=== PATIENT | male | born 1950 | race Caucasian/White ===

== ENCOUNTER → 2020-05-02 | Outpatient (CLI) | payer OTHER ==
--- NOTE | 2020-05-02 11:34 | XR ---
EXAMINATION TYPE: XR knee limited RT DATE OF EXAM: 05/02/2020 COMPARISON: NONE HISTORY: Possible foreign body TECHNIQUE: Three views are submitted. FINDINGS: There is severe arthropathy of the knee joint with hypertrophic spurring. Moderate-sized suprapatella r bursal fluid collection noted. There is a positive metallic foreign body in the posterior soft tiss ues of the knee. IMPRESSION: 1. Exam is POSITIVE for metallic foreign body posterior lateral to the knee joint within the subcutan eous soft tissues. 2. Severe arthropathy with suprapatellar bursal fluid collection.
--- NOTE | 2020-05-02 11:36 | XR ---
EXAMINATION TYPE: XR skull limited DATE OF EXAM: 05/02/2020 COMPARISON: None HISTORY: Shrapnel, 48 years, pre-MRI TECHNIQUE: Two-view skull FINDINGS: There is a metallic fragment at the level of the right angle of the jaw. This may be within the bone or within soft tissue. This would contraindicate MRI. Consider additional workup with CT of the mandible to further evaluate the location of this foreign body. Dental work is present. No additional radiopaque foreign bodies are evident. IMPRESSION: 1. Radiopaque foreign body at the right angle of the jaw of uncertain detail location. CT could be p erformed for closer evaluation. Based on the x-ray, this would contraindicate MRI.
--- NOTE | 2020-05-02 11:41 | XR ---
EXAMINATION TYPE: XR tibia fibula RT DATE OF EXAM: 05/02/2020 COMPARISON: None HISTORY: Metallic foreign body, shrapnel fragment 48 years TECHNIQUE: 2 view right tibia and fibula FINDINGS: The distal right tibia and fibula are examined in AP and lateral views. No metallic foreign bodies in the [id number]. The osseous structures are intact. Ankle appears normal as visualized. Knee is out of the [id number]. IMPRESSION: 1. Normal distal tibia and fibula. No metallic foreign body to contraindicate MRI within the field-o f-view.
== END | disposition home or self-care (01) ==
LOC: RADMRIMAIN 10:17
DX: M12.861 Other specific arthropathies, not elsewhere classified, right knee (principal); T18.0XXA Foreign body in mouth, initial encounter; S80.251A Superficial foreign body, right knee, initial encounter; M25.861 Other specified joint disorders, right knee
CPT/HCPCS: 70250

== ENCOUNTER → 2020-05-22 | Outpatient (CLI) | payer OTHER ==
--- NOTE | 2020-05-22 15:26 | CT ---
EXAMINATION TYPE: CT facial bones wo con DATE OF EXAM: 05/22/2020 COMPARISON: Skull series 05/02/2020 HISTORY: Foreign body right cheek for 20+ years. No complaints at time of scan. CT DLP: 630.3 mGycm Automated exposure control for dose reduction was used. TECHNIQUE: CT scan of the sinuses is performed without contrast, axial images are obtained, coronal r eformatted images are also reviewed. FINDINGS: Metallic density present within the subcutaneous fat over the right buccal region measures approximately 6 mm x 6.2 mm, axial image #24. Incidental note made of degenerative disc change, multi level foraminal encroachment and the upper cervical spine. The paranasal sinuses including the front al, ethmoid, sphenoid, and maxillary sinuses bilaterally are well-aerated without abnormal opacificat ion. The ostiomeatal complex is patent bilaterally on the coronal images. Visualized portion of mastoid air cells show no abnormal opacification. The globes are intact bilate rally. IMPRESSION: The sinuses are clear and the ostiomeatal complex is patent bilaterally. Subcutaneous fat shows metallic foreign body on the right.
== END ==
LOC: RADCTMAIN 13:31
DX: Z18.10 Retained metal fragments, unspecified (principal)
CPT/HCPCS: 70486

== ENCOUNTER → 2020-08-28 | Outpatient (CLI) | payer OTHER ==
--- NOTE | 2020-08-28 12:17 | CT ---
EXAMINATION TYPE: CT abdomen pelvis w con DATE OF EXAM: 08/28/2020 COMPARISON: None HISTORY: Malignant neoplasm of Prostate CT DLP: 384.9 mGycm Automated exposure control for dose reduction was used. TECHNIQUE: Helical acquisition of images from the lung bases through the pelvis have been completed. CONTRAST: Performed with Oral Contrast and with IV Contrast, patient injected with 100 mL of Isovue 300. FINDINGS: LUNG BASES: No significant abnormality is appreciated. AORTA: No significant abnormality is appreciated. LIVER/GB: Scattered calcifications are present within the liver, liver shows no mass, gallbladder is normal PANCREAS: No significant abnormality is seen. SPLEEN: Scattered calcifications also present within the spleen, there may be old granulomatous disea se ADRENALS: No significant abnormality is seen. KIDNEYS: No significant abnormality is seen. REPRODUCTIVE ORGANS: Prostate is enlarged and shows an inferior impression on the urinary bladder. BOWEL: Thickening along the sigmoid colon may be indicative of muscular hypertrophy or lack of diste ntion rather than mucosal lesion, there is diverticular change. FREE AIR: No Free Air visible. ASCITES: None visible. PELVIC ADENOPATHY: None visualized. RETROPERITONEAL ADENOPATHY: No Retroperitoneal Adenopathy visible. URINARY BLADDER: Urine distended, bladder wall thickening could be indicative of chronic bladder out let obstruction OSSEOUS STRUCTURES: There is a spinal curvature. Multilevel spondylosis is present, there is loss of disc height no lumbar spine at the intervertebral levels with multilevel vacuum disc phenomenon. Scl erosis involving multiple vertebral bodies felt likely to be secondary to degenerative changes rather than metastatic disease, there is multilevel facet arthropathy. IMPRESSION: PROSTATE IS ENLARGED, DEGENERATIVE DISC DISEASE AND SPINAL CURVATURE, CONSIDER BONE SCAN. DIVERTICULO SIS. OLD GRANULOMATOUS DISEASE..
== END | disposition home or self-care (01) ==
LOC: RADCTMAIN 09:03
DX: C61 Malignant neoplasm of prostate (principal); N40.0 Benign prostatic hyperplasia without lower urinary tract symptoms; K57.90 Diverticulosis of intestine, part unspecified, without perforation or abscess without bleeding
CPT/HCPCS: 82565; 84520; 74177; 36415; Q9967 ×2

== ENCOUNTER 2020-11-02 07:56 | Emergency (ER) | payer OTHER ==
[2020-11-02 08:03] VITALS: BP 125/74; PULSE 79; RESP 18; TEMP 98.3
--- NOTE | 2020-11-02 08:18 | ED ---
Male Urogenital HPI - General Chief complaint: Urogenital Stated complaint: Catheter Issues Time Seen by Provider: 11/02/20 08:03 Source: patient, RN notes reviewed Mode of arrival: wheelchair Limitations: no limitations - History of Present Illness Initial comments: 70-year-old male presents emergency Department chief complaint of Geller catheter issues. Patient states he had a prostatectomy at the [facility] on Thursday. Patient states her discharged his Geller catheter was clogged with blood clots and he had to be irrigated. He states that he woke up this morning with insertion pressure and states it was not draining. Patient states she is concerned it may be clogged again he otherwise has no other complaints denies any fevers chills nausea vomiting diarrhea constipation. - Related Data Allergies Allergy/AdvReac Type Severity Reaction Status Date / Time No Known Allergies Allergy Verified 11/02/20 08:03 Review of Systems ROS Statement: Those systems with pertinent positive or pertinent negative responses have been documented in the HPI. ROS Other: All systems not noted in ROS Statement are negative. Past Medical History Past Medical History: Cancer, Hypertension Additional Past Medical History / Comment(s): prostate cancer History of Any Multi-Drug Resistant Organisms: None Reported Additional Past Surgical History / Comment(s): prostatectomy, right knee meniscus Past Psychological History: No Psychological Hx Reported Smoking Status: Former smoker Past Alcohol Use History: Occasional Past Drug Use History: None Reported General Exam Limitations: no limitations General appearance: alert, in no apparent distress Head exam: Present: atraumatic, normocephalic, normal inspection Respiratory exam: Present: normal lung sounds bilaterally. Absent: respiratory distress, wheezes, rales, rhonchi, stridor Cardiovascular Exam: Present: regular rate, normal rhythm, normal heart sounds. Absent: systolic murmur, diastolic murmur, rubs, gallop, clicks GI/Abdominal exam: Present: soft, distended, tenderness, normal bowel sounds, other (Multiple incisions and abdomen closed no erythematous changes no wound dehiscence). Absent: guarding, rebound, rigid exam: Present: other (Geller catheter in place) Back exam: Absent: CVA tenderness (R), CVA tenderness (L) Course Vital Signs 11/02/20 07:58 Temperature 98.3 F Pulse Rate 79 Respiratory 18 Rate Blood Pressure 125/74 O2 Sat by Pulse 96 Oximetry Medical Decision Making - Medical Decision Making Geller catheter was irrigated, patient had relief of symptoms, urine is flowing. Patient discharged in stable condition. Disposition Clinical Impression: Complication, blocked Geller catheter, Hematuria, Status post prostatectomy Disposition: HOME SELF-CARE Condition: Stable Instructions (If sedation given, give patient instructions): Geller Catheter Placement and Care (ED) Additional Instructions: Please return to the Emergency Department if symptoms worsen or any other con cerns. Is patient prescribed a controlled substance at d/c from ED?: No Referrals: [facility],Clinic [Primary Care Provider] - 1-2 days Time of Disposition: 08:32
== END 2020-11-02 09:04 | disposition home or self-care (01) ==
LOC: EC 07:56
DX: T83.091A Other mechanical complication of indwelling urethral catheter, initial encounter (principal); R31.9 Hematuria, unspecified; I10 Essential (primary) hypertension; Z87.891 Personal history of nicotine dependence; Z90.79 Acquired absence of other genital organ(s)
CPT/HCPCS: 99283

== ENCOUNTER → 2020-12-04 | Outpatient (CLI) | payer OTHER ==
--- NOTE | 2020-12-04 15:33 | BD ---
EXAMINATION TYPE: Axial Bone Density DATE OF EXAM: 12/04/2020 COMPARISON: NONE CLINICAL HISTORY: Height: 5 FT 9 IN Weight: 149 FRAX RISK QUESTIONS: Alcohol (3 or more units per day): NO Family History (Parent hip fracture): NO Glucocorticoids (More than 3mos): NO (Ex: prednisone, prednisolone, methylprednisolone, dexamethasone, and hydrocortisone). History of Fracture in Adulthood: NO Secondary Osteoporosis: 1. Type 1 Diabetes: NO 2. Hyperthyroidism: NO 3. Menopause before 45: NA 4. Malnutrition: NO 5. Chronic liver disease: NO Rheumatoid Arthritis: NO Current Tobacco Use: NO RISK FACTORS HISTORY OF: Surgery to Spine/Hip(right/left)/Wrist (right/left): NO Family History of Osteoporosis: NO Active: YES Diet low in dairy products/other sources of calcium: NO Postmenopausal woman: NA Lost more than 2 inches in height since high school: YES Poor Health: GOOD MEDICATIONS: Additional Medications: BLOOD PRESSURE MEDS, PAIN MEDS, INFLAMMATION MEDS Additional History: PROSTATE, CANCER 2020 REMOVED EXAM MEASUREMENTS: Bone mineral densitometry was performed using the [employer] System. Bone mineral density as measured about the Lumbar spine is: ----- L1-L4(G/cm2): 1.778 T Score Values are as follows: ----- L2: 3.9 ----- L3: 8.6 ----- L4: 7.8 ----- L1-L4: 5.0 BASELINE Bone mineral density about the R hip (g/cm2): 1.087 Bone mineral density about the L hip (g/cm2): 1.158 T Score values are as follows: -----R Neck: 0.4 -----L Neck: 0.9 -----R Total: 0.5 -----L Total: 1.5 BASELINE IMPRESSION: Normal (Values between +1 and -1 indicate normal bone mass). Consider repeating this study in 5 year s or sooner if there is some new clinical indication. NOTE: T-SCORE=SD OF THE YOUNG ADULT MEAN.
== END | disposition home or self-care (01) ==
LOC: RADBDWWP 08:39
PROVIDERS: ATTEND Family Medicine
DX: Z13.820 Encounter for screening for osteoporosis (principal); Z85.46 Personal history of malignant neoplasm of prostate
CPT/HCPCS: 77080

== ENCOUNTER → 2022-07-31 | Outpatient (CLI) | payer OTHER ==
[2022-07-31 14:50] LABS: Basophils # (A) 0.05 X 10*3/uL (0.00-0.10); Basophils % (A) 0.8 %; HCT 40.6 % (39.6-50.0); HGB 13.4 g/dL (13.0-17.0); Immature Grans, Automated 0.2 %; Lymphocytes # (A) 2.61 X 10*3/uL (0.90-5.00); Lymphocytes % (A) 43.6 %; MCH 30.7 pg (27.0-32.0); MCV 92.9 fL (80.0-97.0); Monocytes # (A) 0.43 X 10*3/uL (0.20-1.00); Monocytes % (A) 7.2 %; NRBC Per 100 WBC 0 /100 WBCS (0.0-0.0); Neutrophils # (A) 2.58 X 10*3/uL (1.80-7.70); Neutrophils % (A) 43.2 %; Platelet Count 303 X 10*3/uL (140-440); RBC 4.37 X 10*6/uL (4.40-5.60); RDW 13.7 % (11.5-14.5); WBC 5.98 X 10*3/uL (4.50-10.00)
== END | disposition home or self-care (01) ==
LOC: LABPAT 09:02
PROVIDERS: ATTEND Surgery
DX: Z01.812 Encounter for preprocedural laboratory examination (principal); I50.1 Left ventricular failure, unspecified; R94.31 Abnormal electrocardiogram [ECG] [EKG]
CPT/HCPCS: 36415; 85025; 93005

== ENCOUNTER 2022-08-12 05:44 | Day surgery (SDC) | payer OTHER ==
[~2022-08-12 05:44] MED LIST: ACETAMINOPHEN TAB 500 MG TAB PO PRN; HEPARIN SODIUM,PORCINE/PF 5,000 UNIT/0.5 ML SYRINGE SQ PRN
[2022-08-12] MEDS ORDERED: MIDAZOLAM 2 MG/2 ML VIAL IV PRN (06:03)
[2022-08-12] MEDS ORDERED: LIDOCAINE 1% (10MG/ML) FOR IV START INTRADERMA PRN (06:03)
[2022-08-12] MEDS ORDERED: ONDANSETRON 4 MG/2 ML VIAL IVP ONE (06:03)
[2022-08-12] MEDS ORDERED: DEXAMETHASONE SOD PHOSPHATE 4 MG/ML 1 ML VIAL IV ONE (06:03)
[2022-08-12] MEDS ORDERED: LACTATED RINGERS 1,000 ML IV SCH (06:03)
[2022-08-12] MEDS ORDERED: HYDROmorphone 0.5 MG/0.5 ML SYRINGE IVP PRN (07:00)
[2022-08-12] MEDS ORDERED: fentaNYL (PF) 50 MCG/ML 2 ML AMP IVP ONE (07:05)
[2022-08-12 07:33] VITALS: RESP 16
[2022-08-12] MEDS ORDERED: MIDAZOLAM 2 MG/2 ML VIAL ONE (07:34)
[2022-08-12] MEDS ORDERED: NEOSTIGMINE 1 MG/ML 10 ML VIAL ONE (07:34)
[2022-08-12] MEDS ORDERED: ROPIVACAINE 5 MG/ML 30 ML VIAL ONE (07:34)
[2022-08-12] MEDS ORDERED: LIDOCAINE 2% INJ 20 MG/ML (2 ML VIAL) ONE (07:34)
[2022-08-12] MEDS ORDERED: GLYCOPYRROLATE 0.2 MG/ML 2 ML VIAL ONE (07:34)
[2022-08-12] MEDS ORDERED: SUCCINYLCHOLINE CHLORIDE 200 MG/10 ML VIAL IV ONE (07:34)
[2022-08-12] MEDS ORDERED: ROCURONIUM 10 MG/ML (5 ML VIAL) IV ONE (07:34)
[2022-08-12] MEDS ORDERED: KETOROLAC 15 MG/ML 1 ML VIAL ONE (07:34)
[2022-08-12] MEDS ORDERED: PROPOFOL 10 MG/ML 20 ML VIAL IV ONE (07:34)
[2022-08-12] MEDS ORDERED: fentaNYL (PF) 50 MCG/ML 2 ML AMP ONE (07:34)
[2022-08-12] MEDS ORDERED: KETAMINE 10 MG/ML 20 ML VIAL ONE (07:34)
[2022-08-12] MEDS ORDERED: SODIUM CHLORIDE 0.9% (PF) 10 ML VIAL ONE (07:34)
[2022-08-12] MEDS ORDERED: BUPIVACAINE (PF) 0.25% 30 ML VIAL SQ ONE (08:00)
[2022-08-12 08:39] VITALS: TEMP 97
--- NOTE | 2022-08-12 08:44 | P.OP ---
Date of Procedure: 08/12/22 Preoperative Diagnosis: Right inguinal hernia Postoperative Diagnosis: Right inguinal hernia Procedure(s) Performed: Laparoscopic robotic system repair of right inguinal hernia Excision of right cord lipoma Transversus abdominis plane block Anesthesia: RICHARD Surgeon: Junior Santos Estimated Blood Loss (ml): 5 Pathology: other (Cord lipoma) Condition: stable Disposition: PACU Description of Procedure: The patient's placed on the operating table in the supine position. The patient received general anesthesia. The patient's abdomen was prepped and draped in usual sterile fashion. The skin was anesthetized 1% local Xylocaine at the incision sites. Using an 11 blade a skin incision was made at the umbilicus. The fascia was grasped with a Nathan and then the peritoneal cavity was entered with the Veress needle. Position of the Veress needle was confirmed with a positive drop test. After adequate insufflation a 5 mm trocar was placed into the peritoneal cavity. The Laparoscope was placed the peritoneal cavity. And a robotic 8 mm trocar was placed in the right lateral position and then another 8 mm robotic trochars placed in the left lateral position. The original 5 mm trocar was exchanged for a 12 mm trocar. A four-quadrant transversus abdominis plane block was then performed with 1% percent local Xylocaine. The patient was placed in reverse Trendelenburg and then the patient was docked to the robot. Next the peritoneum over top of the hernia was incised and then using blunt and sharp dissection and electrocautery the hernia sac was dissected free from the floor of the inguinal canal. The cord lipoma was dissected free sent to pathology. The hernia sac was completely reduced into the peritoneal cavity. And then using the Pro supervisor cell maintenance mesh the hernia was repaired. The peritoneum was then sutured with 20V lock suture. The patient was then undocked the robot. The needle was withdrawn from the peritoneal cavity. The umbilical trocar site was closed with 0 Ethibond suture. The skin was closed interrupted 3-0 Monocryl suture. Dermabond dressing was applied. Patient was sent to recovery in stable condition.
[2022-08-12] MEDS ORDERED: LACTATED RINGERS 1,000 ML IV ONE (08:54)
--- NOTE | 2022-08-12 10:01 | P.ANPRN ---
Procedure Note - Anesthesia - Nerve Block Performed Bilateral Erector Spinae Time Out Performed: Yes (07:04) Date of Procedure: 08/12/22 Procedure Start Time: : Procedure Stop Time: : Location of Patient: PreOp Indication: Acute Post-Operative Pain, Requested by Surgeon (Dr Santos) Sedation Type: Sedate with meaningful contact maintained Preparation: Sterile Prep Position: Prone Catheter: None Needle Types: Pajunk Needle Gauge: 21 Ultrasound used to visualize needle placement: Yes Ultrasound used to observe medication spread: Yes Injectate: 0.5% Ropivacaine (see comment for volume) (15cc +10cc PF Normal saline each side) Blood Aspirated: No Pain Paresthesia on Injection Noted: No Resistance on Injection: Normal Image Stored and Saved: Yes Events: Uneventful and Well Tolerated
[2022-08-12 10:41] VITALS: BP 172/82; PULSE 63
== END 2022-08-12 11:01 | disposition home or self-care (01) ==
LOC: OR 05:44
PROVIDERS: ATTEND Surgery
DX: K40.90 Unilateral inguinal hernia, without obstruction or gangrene, not specified as recurrent (principal); G89.18 Other acute postprocedural pain; D17.5 Benign lipomatous neoplasm of intra-abdominal organs; I10 Essential (primary) hypertension; Z79.899 Other long term (current) drug therapy; Z85.46 Personal history of malignant neoplasm of prostate
CPT/HCPCS: 11402; 49650; S2900; 64999; 86850; 86900; 86901; 88304

== ENCOUNTER 2023-03-04 09:52 | Day surgery (SDC) | payer OTHER ==
[2023-03-03 09:11] VITALS: BMI 23.0
[~2023-03-04 09:52] MED LIST changes: -ACETAMINOPHEN TAB 500 MG TAB PO PRN; -HEPARIN SODIUM,PORCINE/PF 5,000 UNIT/0.5 ML SYRINGE SQ PRN; +LACTATED RINGERS 1,000 ML IV SCH
[2023-03-04] MEDS ORDERED: LIDOCAINE 1% (10MG/ML) FOR IV START INTRADERMA ONE (10:44)
[2023-03-04 10:46] VITALS: TEMP 97.3
[2023-03-04] MEDS ORDERED: PROPOFOL 10 MG/ML 20 ML VIAL IV ONE (10:58)
[2023-03-04 11:38] VITALS: BP 147/84; PULSE 94; RESP 16
--- NOTE | 2023-03-04 12:21 | P.PCN ---
Date of Procedure: 03/04/23 Procedure(s) Performed: BRIEF HISTORY: Patient is a 72-year-old pleasant white male scheduled for an elective colonoscopy as a part of screening for colon cancer. PROCEDURE PERFORMED: Colonoscopy with biopsy and snare polypectomy. PREOPERATIVE DIAGNOSIS: Screening for colon cancer. IV sedation per Anesthesia. PROCEDURE: After informed consent was obtained, the patient, was brought into the endoscopy unit. IV sedation was administered by Anesthesia under continuous monitoring. Digital rectal examination was normal. Initially the Olympus CF-160 flexible video colonoscope was then inserted in the rectum, gradually advanced into the cecum without any difficulty. Careful examination was performed as the scope was gradually being withdrawn. Ileocecal valve and the appendiceal orifice were visualized and appeared normal. Prep was excellent. On the ileocecal valve there was a 1 cm clean linear ulceration identified which was biopsied. Terminal ileum was intubated and 20 cm visualized and appeared normal. Mucosa of the cecum, ascending colon, appeared normal. The proximal transverse colon there was a 5 limited polyp removed by cold snare polypectomy. Rest of the transverse colon, descending colon, sigmoid colon, and rectum appeared normal scattered sigmoid diverticulosis.. Retroflexion was performed in the rectum and no lesions were seen. The patient tolerated the procedure well. IMPRESSION: 1 cm linear isolated clean-based ulcer in the ileocecal valve status post cold biopsy 5 mm proximal transverse colon polyp status post cold snare polypectomy Scattered sigmoid diverticulosis RECOMMENDATIONS: Findings of this examination were discussed with the patient as well as his family.. He was advised to follow with the biopsy results. If the biopsy results adenoma he can have a repeat colonoscopy in 5 years.
== END 2023-03-04 12:25 | disposition home or self-care (01) ==
LOC: ORWHC2ENDO 09:52
PROVIDERS: ATTEND Internal Medicine Gastroenterology
DX: Z12.11 Encounter for screening for malignant neoplasm of colon (principal); D12.3 Benign neoplasm of transverse colon; K57.30 Diverticulosis of large intestine without perforation or abscess without bleeding; K63.3 Ulcer of intestine; I10 Essential (primary) hypertension; Z87.891 Personal history of nicotine dependence; Z85.46 Personal history of malignant neoplasm of prostate; Z79.899 Other long term (current) drug therapy; Z98.890 Other specified postprocedural states
CPT/HCPCS: 88305; 45380; 45385; J2704

== ENCOUNTER → 2024-02-23 | Outpatient (CLI) | payer OTHER ==
--- NOTE | 2024-02-23 13:32 | CT ---
EXAMINATION TYPE: CT sinus wo con CT DLP: 672 mGycm, Automated exposure control for dose reduction was used. DATE OF EXAM: 02/23/2024 1:18 PM COMPARISON: CT facial bones 05/22/2020. CLINICAL INDICATION:Male, 73 years old with history of With fusion protocols; J32.9 CHRONIC SINUSITIS , UN; [facility], sinustitis CONTRAST: None. TECHNIQUE: Multiple thin axial images were obtained through the paranasal sinuses without the use of IV contrast. Additional coronal and sagittal reformatted images were submitted for evaluation. FINDINGS: Frontal sinuses: Normally developed and aerated. Minimal mucosal thickening of the right frontal sinu s. Frontal Recess: Clear Maxillary Sinuses: Normally developed and aerated. Tiny mucus retention 5 mm cyst within the anterior inferior right maxilla sinus. Maxillary Infundibula([facility]): Left side is clear, there is opacification of the right. No Arturo cells. Ethmoid sinuses: Normally developed and aerated. Ethmoidal notch: Protected and abutting the lateral lamina. Sphenoid sinuses: Normally developed and aerated. Minimal mucosal thickening of the bilateral sphenoi d sinuses. There is conchal sphenoid sinus pneumatization without evidence of dehiscence. No dehisce nce of carotid canal. No evidence of optic nerve dehiscence within the sphenoid sinus. Sphenoethmoida l recesses: The right is clear. The left is opacified. Nasal septum: Within normal limits.. Nasal Turbinates: Within normal limits. Mastoid air cells & middle ears: The air cells are clear. The middle ears are grossly unremarkable. Modified Soft tissues & Brain: Partially seen without gross abnormality. Globes are intact. Previousl y seen right cheek. Opaque foreign body is no longer visualized. Other: Cribriform plate demonstrates symmetric Keros classification type 2 cribriform plate. No evidence of bony dehiscence of skull base. Lamina papyracea is intact without evidence of remote orbital fracture or orbital prolapse into the e thmoid sinus. IMPRESSION: 1. Minimal to mild paranasal sinus disease. 2. The frontonasal recesses are clear. The left ostiomeatal unit is clear. The right maxillary infund ibulum is opacified. The right sphenoethmoid recess is clear. The left is opacified. [facility], , 02/23/2024 1:29 PM
== END | disposition home or self-care (01) ==
LOC: RADCTMAIN 12:56
PROVIDERS: ATTEND Otolaryngology
DX: J32.9 Chronic sinusitis, unspecified (principal)
CPT/HCPCS: 70486